=== PATIENT | female | born 1985 | race Two or more races ===

== ENCOUNTER 2025-03-21 21:41 | Emergency (ER) | payer SELFPAY ==
[~2025-03-21] VITALS: Ht 160 cm; Wt 57.2 kg
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
[2025-03-22 02:15] VITALS: BP 153/87; PULSE 92; RESP 16; TEMP 98.5; O2SAT 98
[2025-03-22] MEDS ORDERED: AUG875T PO (02:19)
[2025-03-22] MEDS ORDERED: IBUP-1456 PO (02:19)
== END 2025-03-22 02:36 | disposition home or self-care (01) ==
LOC: EDBD 21:41 → ER 21:41
DX: S02.2XXB Fracture of nasal bones, initial encounter for open fracture (principal); S13.4XXA Sprain of ligaments of cervical spine, initial encounter; S09.8XXA Other specified injuries of head, initial encounter; Z88.5 Allergy status to narcotic agent; Z88.8 Allergy status to other drugs, medicaments and biological substances; V89.2XXA Person injured in unspecified motor-vehicle accident, traffic, initial encounter; Y93.I9 Activity, other involving external motion; Y92.488 Other paved roadways as the place of occurrence of the external cause; Y99.8 Other external cause status
CPT/HCPCS: 12011; 70450; 70486; 72125